=== PATIENT | male | born 1935 | race Caucasian/White ===

== ENCOUNTER 2019-02-05 15:08 | Inpatient (IN) | payer MEDICARE, OTHER ==
[~2019-02-05] VITALS: Ht 172.7 cm; Wt 74.0 kg
[2019-02-05] MEDS ORDERED: PHARMACOKINETIC CONSULTATION MC ONE ×2 (16:00→19:00)
[2019-02-05] MEDS ORDERED: SODIUM CHLORIDE FLUSH 10ML SYR IVF ONE (16:00)
[2019-02-05] MEDS ORDERED: VANCOMYCIN PER PHARMACY IV ONE (16:00)
[2019-02-05] MEDS ORDERED: VANCOMYCIN 1,500 MG in SODIUM CHLORIDE 0.9% 250 ML IV ONE (16:00)
[2019-02-05 16:13] LABS: BASOPHILS # (AUTO) 0.02 x10^3/uL (0-0.1); BASOPHILS % (AUTO) 0 % (0-1); EOSINOPHILS # (AUTO) 0.42 x10^3/uL (0-0.4); EOSINOPHILS % (AUTO) 4 % (1-7); LYMPHOCYTES # (AUTO) 2.05 x10^3/uL (1-3.4); LYMPHOCYTES % (AUTO) 18 % (22-44); MD NO; MEAN CORPUSCULAR HEMOGLOBIN 31.8 pg (27.5-34.5); MEAN CORPUSCULAR HGB CONC 33.1 g/dL (33.2-36.2); MEAN CORPUSCULAR VOLUME 96.2 fL (81-97); MEAN PLATELET VOLUME 9.5 fL (7.4-10.4); MONOCYTES # (AUTO) 1.15 x10^3/uL (0.2-0.8); MONOCYTES % (AUTO) 10 % (2-9); NEUTROPHILS # (AUTO) 7.69 x10^3/uL (1.8-6.8); NEUTROPHILS % (AUTO) 68 % (42-75); PLATELET COUNT 186 x10^3/uL (130-400); RED BLOOD COUNT 5.08 x10^6/uL (4.38-5.82); RED CELL DISTRIBUTION WIDTH 13.3 % (9.4-14.8)
[2019-02-05 16:24] LABS: ALBUMIN 3.8 g/dL (3.4-5.0); ANION GAP 8 mmol/L (5-15); CALCIUM 9.1 mg/dL (8.5-10.1); CHLORIDE 108 mmol/L (98-107)
[2019-02-05 16:25] LABS: CREATININE 1.08 mg/dL (0.7-1.3)
[2019-02-05] MEDS ORDERED: VANCOMYCIN PER PHARMACY MC PRN (17:00)
[2019-02-05] MEDS ORDERED: ONDANSETRON ODT 4 MG PO PRN (17:00)
[2019-02-05] MEDS ORDERED: ONDANSETRON 2MG/ML, 2ML IVPush PRN (17:00)
--- NOTE | 2019-02-05 17:27 | NUR ---
PT UP TO RESTROOM. ABX AND ALL MONITORING EQUIPMENT DISCONNECTED. UPON ENTERING BACK IN THE ROOM PT'S STATED THAT DR FIERRO SAID "WE ARE GOING TO CHANGE ABX" ATTEMPTED TO CALL DR FIERRO FOR CLARIFICATION OF ORDER, CHECKED IF ORDERS WERE CANCELLED. AT THIS TIME ABX CONTINUED UNTIL FURTHER ORDERS RECIEVED.
[2019-02-05 18:27] VITALS: BP 133/66
[2019-02-05] MEDS ORDERED: PHARMACOKINETIC MONITORING MC PRN (19:00)
[2019-02-05] MEDS: ENOXAPARIN 40 MG/0.4 ML SQ SCH (19:55)
[2019-02-05] MEDS: HYDROcodone/APAP 5/325 TABLET PO PRN (19:55)
[2019-02-05] MEDS: CEFTAROLINE 600 MG in SODIUM CHLORIDE 0.9% 100 ML IV SCH (19:56)
[2019-02-05 20:07] VITALS: BP 129/58
[2019-02-06 03:58] VITALS: BP 120/83
[2019-02-06 05:25] LABS: HCT (SEDRATE) 46.8 % (39.2-51.8)
[2019-02-06 05:35] LABS: ALANINE AMINOTRANSFERASE 18 U/L (12-78); ANION GAP 6 mmol/L (5-15); CALCIUM 8.9 mg/dL (8.5-10.1); CHLORIDE 111 mmol/L (98-107); CREATININE 1.03 mg/dL (0.7-1.3)
[2019-02-06 05:38] LABS: ALKALINE PHOSPHATASE 57 U/L (45-117); BILIRUBIN,TOTAL 0.8 mg/dL (0.2-1.0); TOTAL PROTEIN 6.2 g/dL (6.4-8.2)
[2019-02-06 05:39] LABS: MEAN CORPUSCULAR HEMOGLOBIN 32.3 pg (27.5-34.5); MEAN CORPUSCULAR HGB CONC 33.7 g/dL (33.2-36.2); MEAN CORPUSCULAR VOLUME 95.8 fL (81-97); MEAN PLATELET VOLUME 9.8 fL (7.4-10.4); PLATELET COUNT 169 x10^3/uL (130-400); RED BLOOD COUNT 4.87 x10^6/uL (4.38-5.82); RED CELL DISTRIBUTION WIDTH 13.6 % (9.4-14.8)
[2019-02-06 06:05] LABS: BASOPHILS # (AUTO) 0.05 x10^3/uL (0-0.1); BASOPHILS % (AUTO) 1 % (0-1); EOSINOPHILS # (AUTO) 0.61 x10^3/uL (0-0.4); EOSINOPHILS % (AUTO) 7 % (1-7); LYMPHOCYTES # (AUTO) 1.59 x10^3/uL (1-3.4); LYMPHOCYTES % (AUTO) 19 % (22-44); MD NO; MONOCYTES # (AUTO) 0.96 x10^3/uL (0.2-0.8); MONOCYTES % (AUTO) 11 % (2-9); NEUTROPHILS # (AUTO) 5.31 x10^3/uL (1.8-6.8); NEUTROPHILS % (AUTO) 63 % (42-75)
[2019-02-06 06:48] VITALS: BP 119/70
[2019-02-06] MEDS: HYDROcodone/APAP 5/325 TABLET PO PRN ×3 (07:23→21:26)
[2019-02-06] MEDS ORDERED: GADOBUTROL 7.5 MMOL/7.5 ML PFS ONE (08:27)
[2019-02-06] MEDS: CEFTAROLINE 600 MG in SODIUM CHLORIDE 0.9% 100 ML IV SCH ×2 (08:47→20:18)
[2019-02-06 12:08] LABS: INTERNATIONAL NORMALIZED RATIO 1.04 (0.93-1.1); PROTHROMBIN TIME 10.9 Seconds (9.6-11.5)
[2019-02-06 12:28] VITALS: BP 103/73
[2019-02-06] MEDS ORDERED: VANCOMYCIN 1,500 MG in SODIUM CHLORIDE 0.9% 250 ML IV SCH (17:00)
[2019-02-06] MEDS: ENOXAPARIN 40 MG/0.4 ML SQ SCH (20:18)
[2019-02-06 21:12] VITALS: BP 122/65
[2019-02-07 03:55] VITALS: BP 106/69
[2019-02-07] MEDS ORDERED: VANCOMYCIN 1,500 MG in SODIUM CHLORIDE 0.9% 250 ML IV SCH (05:00)
[2019-02-07 05:31] LABS: BASOPHILS # (AUTO) 0.04 x10^3/uL (0-0.1); BASOPHILS % (AUTO) 1 % (0-1); EOSINOPHILS # (AUTO) 0.57 x10^3/uL (0-0.4); EOSINOPHILS % (AUTO) 7 % (1-7); LYMPHOCYTES # (AUTO) 1.86 x10^3/uL (1-3.4); LYMPHOCYTES % (AUTO) 23 % (22-44); MD NO; MEAN CORPUSCULAR HEMOGLOBIN 31.2 pg (27.5-34.5); MEAN CORPUSCULAR VOLUME 94.6 fL (81-97); MEAN PLATELET VOLUME 9.3 fL (7.4-10.4); MONOCYTES # (AUTO) 0.98 x10^3/uL (0.2-0.8); MONOCYTES % (AUTO) 12 % (2-9); NEUTROPHILS # (AUTO) 4.83 x10^3/uL (1.8-6.8); NEUTROPHILS % (AUTO) 58 % (42-75); PLATELET COUNT 172 x10^3/uL (130-400); RED BLOOD COUNT 4.89 x10^6/uL (4.38-5.82)
[2019-02-07 05:40] LABS: ANION GAP 6 mmol/L (5-15); CHLORIDE 111 mmol/L (98-107); CREATININE 1.15 mg/dL (0.7-1.3)
[2019-02-07 06:50] VITALS: BP 132/72
[2019-02-07] MEDS: CEFTAROLINE 600 MG in SODIUM CHLORIDE 0.9% 100 ML IV SCH ×2 (07:59→20:35)
[2019-02-07] MEDS: SODIUM CHLORIDE 0.9% 1,000 ML IV SCH ×2 (08:30→20:36)
[2019-02-07 14:48] VITALS: BP 136/76
[2019-02-07] MEDS: HYDROcodone/APAP 5/325 TABLET PO PRN ×2 (15:49→22:08)
[2019-02-07 20:23] VITALS: BP 126/73
[2019-02-07] MEDS: ENOXAPARIN 40 MG/0.4 ML SQ SCH (20:35)
[2019-02-08 02:52] VITALS: BP 115/61
[2019-02-08] MEDS: HYDROcodone/APAP 5/325 TABLET PO PRN (05:26)
[2019-02-08 06:36] LABS: ANION GAP 6 mmol/L (5-15); CALCIUM 8.9 mg/dL (8.5-10.1); CHLORIDE 109 mmol/L (98-107); CREATININE 1.17 mg/dL (0.7-1.3)
[2019-02-08 07:08] VITALS: BP 123/75
[2019-02-08] MEDS: CEFTAROLINE 600 MG in SODIUM CHLORIDE 0.9% 100 ML IV SCH (08:02)
[2019-02-08] MEDS ORDERED: POLY17PO5 PO (10:43)
[2019-02-08] MEDS ORDERED: CEFT600V IV (10:43)
[2019-02-08] MEDS ORDERED: HYDR-3237 PO (10:43)
[2019-02-08] MEDS: SODIUM CHLORIDE 0.9% 1,000 ML IV SCH (11:10)
== END 2019-02-08 12:50 | disposition home or self-care (01) | DRG 872 ==
LOC: ED 16:57 → EDIP 17:40 → 4NOR 18:08 → DCLOUNGE 02-08 12:40
PROVIDERS: ADMIT Hospitalist; ATTEND Hospitalist
PROC: 02HV33Z Insertion of Infusion Device into Superior Vena Cava, Percutaneous Approach (ICD-10-PCS; principal; 2019-02-07)
PROC: B5181ZA Fluoroscopy of Superior Vena Cava using Low Osmolar Contrast, Guidance (ICD-10-PCS; 2019-02-07)
PROC: B548ZZA Ultrasonography of Superior Vena Cava, Guidance (ICD-10-PCS; 2019-02-07)
DX: A41.9 Sepsis, unspecified organism (principal); L03.114 Cellulitis of left upper limb; L02.512 Cutaneous abscess of left hand; I44.7 Left bundle-branch block, unspecified; S61.452A Open bite of left hand, initial encounter; K21.9 Gastro-esophageal reflux disease without esophagitis; M65.842 Other synovitis and tenosynovitis, left hand; M19.90 Unspecified osteoarthritis, unspecified site; Z87.891 Personal history of nicotine dependence; W55.01XA Bitten by cat, initial encounter; Y93.89 Activity, other specified; Y92.89 Other specified places as the place of occurrence of the external cause; Y99.8 Other external cause status
CPT/HCPCS: 36415; 36573; 80048; 80053; 82040; 83605; 85025; 85610; 85651; 86140; 87040; 87081; 99285; A9585; G0378; J0712; J1650; J3370; C1751; J7050

== ENCOUNTER 2019-03-14 15:48 | Inpatient (IN) | payer MEDICARE, OTHER ==
[~2019-03-14] VITALS: Ht 172.7 cm; Wt 77.1 kg
[2019-03-29 08:33] VITALS: BP 118/69
== END 2019-03-29 13:57 | DRG 177 ==
LOC: ED 16:57 → EDIP 18:17 → 4WST 20:38 → CCU 03-16 12:14 → ICU 03-17 17:25 → 5SO 03-20 16:14
PROVIDERS: ADMIT Internal Medicine; ATTEND Internal Medicine
DX: J15.0 Pneumonia due to Klebsiella pneumoniae (principal); I26.99 Other pulmonary embolism without acute cor pulmonale; J96.01 Acute respiratory failure with hypoxia; I50.41 Acute combined systolic (congestive) and diastolic (congestive) heart failure; N17.0 Acute kidney failure with tubular necrosis; E44.0 Moderate protein-calorie malnutrition; E87.2 Acidosis; I42.9 Cardiomyopathy, unspecified; I82.A11 Acute embolism and thrombosis of right axillary vein; J84.9 Interstitial pulmonary disease, unspecified; E86.0 Dehydration; R00.1 Bradycardia, unspecified; E87.5 Hyperkalemia; F17.210 Nicotine dependence, cigarettes, uncomplicated; K21.9 Gastro-esophageal reflux disease without esophagitis; I11.0 Hypertensive heart disease with heart failure; I27.20 Pulmonary hypertension, unspecified; I35.1 Nonrheumatic aortic (valve) insufficiency; I37.1 Nonrheumatic pulmonary valve insufficiency; I44.7 Left bundle-branch block, unspecified; J43.9 Emphysema, unspecified; Z16.11 Resistance to penicillins; Z79.01 Long term (current) use of anticoagulants; Z90.2 Acquired absence of lung [part of]; Z90.49 Acquired absence of other specified parts of digestive tract; Z99.81 Dependence on supplemental oxygen; Z68.25 Body mass index [BMI] 25.0-25.9, adult
CPT/HCPCS: 36415; 36600; 71045; 71250; 78582; 80048; 80053; 80069; 81001; 82803; 83605; 83735; 83880; 84100; 84145; 84484; 85025; 85379; 85520; 85610; 85730; 87040; 87070; 87077; 87081; 87186; 87205; 93005; 93306; 93970; 94640; 99285; G0378; J0295; J1644; J1940; J2020; J2185; J2543; J7620; A9540; A9558; C9898; J2920; J2930; J3475; J7030; J7120